=== PATIENT | female | born 1985 | race Caucasian/White ===

== ENCOUNTER 2016-10-09 09:22 | Emergency (ER) | payer OTHER ==
[~2016-10-09] VITALS: Ht 165.1 cm; Wt 77.1 kg
[2016-10-09] MEDS ORDERED: RITALIN10 MG PO (10:01)
[2016-10-09] MEDS ORDERED: MURO-12815 ML/BOT OPHTHALMIC (10:02)
[2016-10-09] MEDS ORDERED: MURO-128 OPHTH3.5 G1 OP (10:02)
[2016-10-09] MEDS ORDERED: PRILOSEC 20 MG20 MG PO (10:02)
[2016-10-09 10:23] LABS: URINE BILIRUBIN NEGATIVE (Negative); URINE BLOOD 2+ (Negative); URINE COLOR YELLOW; URINE GLUCOSE-RANDOM* NEGATIVE (Negative); URINE KETONES NEGATIVE (Negative); URINE NITRITE NEGATIVE (Negative); URINE PROTEIN (DIPSTICK) NEGATIVE (Negative); URINE UROBILINOGEN 0.2 E.U./dl (0.2-1.0)
[2016-10-09 10:23] LABS: BASOPHILS 0.3 % (0.0-2.0); EOSINOPHILS 1.5 % (0.0-3.0); HEMATOCRIT 36.6 % (37.0-47.0); HEMOGLOBIN 12.6 gm/dL (12.0-15.0); LYMPHOCYTES 33.3 % (24.0-44.0); MCH 30.3 pg (26.0-34.0); MCHC 34.4 % (28.0-37.0); MONOCYTES 3.9 % (1.0-8.0); PLATELET COUNT 272 thou/uL (150-400); RBC 4.16 mil/uL (4.20-5.00); RDW 12.6 % (10.5-14.5); WBC 4.9 thou/uL (4.0-11.0)
[2016-10-09 10:24] LABS: MANUAL DIFF NO
[2016-10-09 10:26] LABS: CREATININE 0.8 mg/dL (0.6-1.3); POTASSIUM 3.9 mmol/L (3.5-5.1)
[2016-10-09 10:30] LABS: CASTS None Seen /LPF (None Seen); CRYSTALS None Seen /LPF (None Seen); SQUAMOUS 4-10 Moderate /LPF (0-3); URINE RBC 0-2 Rare /HPF (0-2); URINE WBC 0-5 Rare /HPF (0-5)
[2016-10-09] MEDS ORDERED: IBUPROFEN 600600 M1 PO (11:26)
[2016-10-09] MEDS ORDERED: PREDNISONE 20 M20 MG PO (11:26)
[2016-10-09] MEDS ORDERED: HYDROCODONE-AP1 EAC6 PO (11:30)
[2016-10-09 12:36] VITALS: BP 116/68
== END 2016-10-09 12:37 | disposition home or self-care (01) ==
LOC: ER 09:22
PROVIDERS: Nurse Practitioner
DX: M54.42 Lumbago with sciatica, left side (principal); H92.01 Otalgia, right ear; J45.909 Unspecified asthma, uncomplicated; F90.9 Attention-deficit hyperactivity disorder, unspecified type; Z88.0 Allergy status to penicillin; F10.99 Alcohol use, unspecified with unspecified alcohol-induced disorder